=== PATIENT | female | born 1970 | race Caucasian/White ===

== ENCOUNTER 2022-12-02 12:42 | Emergency (ER) | payer OTHER ==
[~2022-12-02] VITALS: Ht 167 cm; Wt 100.0 kg
--- NOTE | 2022-12-02 13:08 | ED General ---
General Chief Complaint: Back Problems Stated Complaint: LT JAW/UPPR LT BACK PAIN; NAUSEA Nursing Triage Note: PT REPORTS UPPER BACK PAIN THIS AM AND THE AREA AROUND HER IMPLANTED PORT FELT SORE AND SHE HAS HAD ISSUES WITH INT IN THE PAST. SHE ALSO HAD SOME RIGHT JAW PAIN AND A MOMENT OF A SHARP PAIN IN HER LEFT BREAST. Source of Information: Patient, Family (son) Exam Limitations: No Limitations History of Present Illness Date Seen by Provider: Dec 02, 2022 Time Seen by Provider: 12:54 Initial Comments 52-year-old female presents to the emergency department today for pain in her right posterior back, right jaw and left chest wall near her Port-A-Cath. She has had pain and issues with her port cath since they placed it for chemotherapy secondary to colon cancer. She is cancer free as of January of last year status post resection and chemotherapy. She states she was sitting at work and had the onset of back pain in her right parascapular region fairly suddenly. No strenuous activity at the time, just sitting down. No cough, shortness of breath, fevers or chills. Symptoms have subsided some as they were described as fairly significant at onset but now rates them about a 3/10 at present. No cardiac history. She is on Xarelto as she had a clot surrounding catheter in her left chest wall when it was placed. She states she does occasionally miss some doses. Does not believe she has missed any recently. All other systems reviewed and negative except documented per HPI. Voice recognition software was used to help create this chart Allergies and Home Medications Allergies Coded Allergies: Tetracycline (Verified Allergy, Unknown, 06/04/07) Patient Home Medication List Home Medication List Reviewed: Yes Review of Systems Review of Systems Constitutional: no symptoms reported Past Qgrktuo-Kkvnik-Txolit Hx Patient Social History Tobacco Use?: Yes Tobacco type used: Cigarettes Smoking Status: Current Everyday Smoker Use of E-Cig and/or Vaping dev: No Substance use?: No Alcohol Use?: No Pt feels they are or have been: No Past Medical History Surgery/Hospitalization HX: COLON CANCER, ENDED CHEMO DECEMBER 2021, REPORTS CANCER FREE Family Medical History Reviewed Nursing Family Hx No Pertinent Family Hx Physical Exam Vital Signs Vital Signs - First Documented 12/02/22 12:48 Temp 36.4 Pulse 72 Resp 22 B/P (MAP) 149/90 (109) Pulse Ox 98 O2 Delivery Room Air Capillary Refill : Less Than 3 Seconds Height, Weight, BMI Height: '" Weight: lbs. oz. kg; 35.00 BMI Method: General Appearance: No Apparent Distress, WD/WN HEENT: Normal ENT Inspection, Pharynx Normal Neck: Full Range of Motion, Normal Inspection, Non Tender, Supple Respiratory: Lungs Clear, Normal Breath Sounds, No Accessory Muscle Use, No Respiratory Distress, Other (Tenderness palpation left anterior chest wall near her Port-A-Cath. The skin is normal. There is no swelling.) Cardiovascular: Regular Rate, Rhythm, No Edema, No Gallop, No JVD, No Murmur, Normal Peripheral Pulses Gastrointestinal: Normal Bowel Sounds, No Organomegaly, No Pulsatile Mass, Non Tender, Soft Back: Normal Inspection, No Vertebral Tenderness, Other (Tenderness to the right back just medial to the scapula. Significant voluntary guarding.) Extremity: Normal Capillary Refill, Normal Inspection, Normal Range of Motion, Non Tender, No Calf Tenderness Neurologic/Psychiatric: Alert, Oriented x3 Skin: Normal Color Lymphatic: No Adenopathy Progress/Results/Core Measures Suspected Sepsis SIRS Temperature: Pulse: 72 Respiratory Rate: 22 Laboratory Tests 12/02/22 12:53: White Blood Count 10.3 Blood Pressure 149 /90 Mean: 109 Laboratory Tests 12/02/22 12:53: Creatinine 0.89, Platelet Count 299, Total Bilirubin 0.3 Results/Orders Lab Results Laboratory Tests Test 12/02/22 12:53 Range/Units White Blood Count 10.3 4.3-11.0 10^3/uL Red Blood Count 5.46 H 3.80-5.11 10^6/uL Hemoglobin 16.7 H 11.5-16.0 g/dL Hematocrit 48 35-52 % Mean Corpuscular Volume 88 80-99 fL Mean Corpuscular Hemoglobin 31 25-34 pg Mean Corpuscular Hemoglobin Concent 35 32-36 g/dL Red Cell Distribution Width 13.4 10.0-14.5 % Platelet Count 299 130-400 10^3/uL Mean Platelet Volume 9.7 9.0-12.2 fL Immature Granulocyte % (Auto) 0 % Neutrophils (%) (Auto) 58 42-75 % Lymphocytes (%) (Auto) 30 12-44 % Monocytes (%) (Auto) 7 0-12 % Eosinophils (%) (Auto) 4 0-10 % Basophils (%) (Auto) 1 0-10 % Neutrophils # (Auto) 5.9 1.8-7.8 10^3/uL Lymphocytes # (Auto) 3.1 1.0-4.0 10^3/uL Monocytes # (Auto) 0.8 0.0-1.0 10^3/uL Eosinophils # (Auto) 0.4 H 0.0-0.3 10^3/uL Basophils # (Auto) 0.1 0.0-0.1 10^3/uL Immature Granulocyte # (Auto) 0.0 0.0-0.1 10^3/uL Sodium Level 137 135-145 MMOL/L Potassium Level 4.2 3.6-5.0 MMOL/L Chloride Level 98 98-107 MMOL/L Carbon Dioxide Level 27 21-32 MMOL/L Anion Gap 12 5-14 MMOL/L Blood Urea Nitrogen 13 7-18 MG/DL Creatinine 0.89 0.60-1.30 MG/DL Estimat Glomerular Filtration Rate 77 BUN/Creatinine Ratio 15 Glucose Level 104 70-105 MG/DL Calcium Level 10.0 8.5-10.1 MG/DL Corrected Calcium 9.6 8.5-10.1 MG/DL Total Bilirubin 0.3 0.1-1.0 MG/DL Aspartate Amino Transf (AST/SGOT) 15 5-34 U/L Alanine Aminotransferase (ALT/SGPT) 22 0-55 U/L Alkaline Phosphatase 72 40-136 U/L Troponin I < 0.30 <0.30 NG/ML Total Protein 8.4 H 6.4-8.2 GM/DL Albumin 4.5 3.2-4.5 GM/DL My Orders Orders - JULIO DEMARCO DO Cbc With Automated Diff (12/02/22 12:55) Chest 1 View Ap/Pa Only (12/02/22 12:55) Ekg Tracing (12/02/22 12:55) Comprehensive Metabolic Panel (12/02/22 12:55) Monitor-Rhythm Ecg Trace Only (12/02/22 12:55) Ed Iv/Invasive Line Start (12/02/22 12:55) Troponin I Fs (12/02/22 12:55) Ketorolac Injection (Toradol Injection) (12/02/22 13:30) Medications Given in ED Current Medications Medications Dose Ordered Sig/Priya Route Start Time Stop Time Status Last Admin Dose Admin Ketorolac Tromethamine 15 mg ONCE ONCE IM 12/02/22 13:30 12/02/22 13:31 DC 12/02/22 13:23 15 MG Vital Signs/I&O 12/02/22 12:48 Temp 36.4 Pulse 72 Resp 22 B/P (MAP) 149/90 (109) Pulse Ox 98 O2 Delivery Room Air Capillary Refill : Less Than 3 Seconds Blood Pressure Mean: 109 ECG Comment Sinus rhythm with a rate of 73 bpm. Normal intervals. Normal axis. No ST or T wave abnormalities. No ectopy. No STEMI. Departure Communication (Admissions) Patient is hemodynamically stable. Shows no evidence for recurrent clot in her Port-A-Cath. She is on Xarelto. No indication of ACS with negative troponin, nonischemic EKG. Pain is very reproducible on exam in her right parascapular region, likely musculoskeletal in nature. Symptoms are improved with Toradol. She be discharged home in stable condition. I have independently reviewed the EKG and chest x-ray imaging Impression Primary Impression: Musculoskeletal pain Disposition: 01 HOME, SELF-CARE Condition: Stable Departure-Patient Inst. Referrals: [facility] (PCP/Family) Primary Care Physician Patient Instructions: Muscle Strain (DC) Add. Discharge Instructions: Take the provided medications as prescribed as needed. Perform stretching exercises as discussed in the emergency department. Follow-up with your primary doctor should your symptoms persist. Return to the emergency department if they change in any way concerning to you. All discharge instructions reviewed with patient and/or family. Voiced understanding. Scripts Ketorolac Tromethamine (Ketorolac Tromethamine) 10 Mg Tablet 10 MG PO TID for Pain for 3 Days, #9 TAB Prov: JULIO DEMARCO DO 12/02/22 JULIO DEMARCO DO Dec 02, 2022 13:08
[2022-12-02 13:11] LABS: BASOPHILS # (AUTO) 0.1 10^3/uL (0.0-0.1); BASOPHILS % (AUTO) 1 % (0-10); EOSINOPHILS # (AUTO) 0.4 10^3/uL (0.0-0.3); EOSINOPHILS % (AUTO) 4 % (0-10); HEMATOCRIT 48 % (35-52); HEMOGLOBIN 16.7 g/dL (11.5-16.0); LYMPHOCYTES # (AUTO) 3.1 10^3/uL (1.0-4.0); LYMPHOCYTES % (AUTO) 30 % (12-44); MEAN CORPUSCULAR HEMOGLOBIN 31 pg (25-34); MEAN CORPUSCULAR HGB CONC 35 g/dL (32-36); MEAN CORPUSCULAR VOLUME 88 fL (80-99); MEAN PLATELET VOLUME 9.7 fL (9.0-12.2); MONOCYTES # (AUTO) 0.8 10^3/uL (0.0-1.0); MONOCYTES % (AUTO) 7 % (0-12); NEUTROPHILS # (AUTO) 5.9 10^3/uL (1.8-7.8); NEUTROPHILS % (AUTO) 58 % (42-75); PLATELET COUNT 299 10^3/uL (130-400); WHITE BLOOD COUNT 10.3 10^3/uL (4.3-11.0)
--- NOTE | 2022-12-02 13:11 | Diagnostic Imaging Report ---
INDICATION: Chest pain. TECHNIQUE: Single view chest 1:02 PM. CORRELATION STUDY: None FINDINGS: The heart size, mediastinal configuration and pulmonary vascularity are within normal limits. The lungs are clear with no consolidating infiltrate. There is no significant effusion or pneumothorax. Left subclavian Kupobx-f-Enin catheter, tip projects over the cavoatrial junction. IMPRESSION: 1. Negative appearing portable chest. Dictated by: Dictated on workstation # [id number]
[2022-12-02 13:26] LABS: ALBUMIN 4.5 GM/DL (3.2-4.5); BILIRUBIN,TOTAL 0.3 MG/DL (0.1-1.0); CREATININE SERUM 0.89 MG/DL (0.60-1.30); POTASSIUM 4.2 MMOL/L (3.6-5.0); TOTAL PROTEIN 8.4 GM/DL (6.4-8.2)
[2022-12-02] MEDS ORDERED: KETOROLAC 15 MG/ML VIAL IM ONE (13:30)
[2022-12-02] MEDS ORDERED: KETO10TA PO (13:40)
[2022-12-02 13:41] VITALS: BP 130/71
== END 2022-12-02 13:42 | disposition home or self-care (01) ==
LOC: EDUNIT# 12:42 → ER FS 12:45
DX: M54.6 Pain in thoracic spine (principal); C18.9 Malignant neoplasm of colon, unspecified; F17.210 Nicotine dependence, cigarettes, uncomplicated; Z79.01 Long term (current) use of anticoagulants; Z28.310 Unvaccinated for COVID-19
CPT/HCPCS: 36415; 71045; 80053; 84484; 85025; 93005; 93041